=== PATIENT | male | born 1970 | race Caucasian/White ===

== ENCOUNTER → 2020-07-09 14:05 | Outpatient (CLI) | payer OTHER, SELFPAY ==
[2020-07-09 16:08] LABS: COVID19 -Nasal RAPID Negative (Negative)
== END ==
PROVIDERS: Visit Provider Physician Assistant
DX: Z03.818 Encounter for observation for suspected exposure to other biological agents ruled out (principal)
CPT/HCPCS: 87635

== ENCOUNTER 2021-09-19 12:10 | Emergency (ER) | payer OTHER, SELFPAY ==
[2021-09-19] VITALS (50 sets, daily range): BP systolic 119–171; BP diastolic 74–117; PULSE 61–83; RESP 6–27; TEMP 36.6; O2SAT 94–99; BMI 31.9
--- NOTE | 2021-09-19 12:16 | DI.RAD.S_ITS ---
PROCEDURE: XR CHEST 1V INDICATIONS: chest pain TECHNIQUE: One view of the chest was acquired. COMPARISON: [facility], , CHEST 1VW (PORTABLE), 02/11/2011, 9:12. FINDINGS: Surgical changes and devices: None. Lungs and pleura: Presumed atelectasis can be seen at the left lung base. No focal infiltrates are seen. No pleural effusions or pneumothorax. Mediastinum: Mediastinal contours appear normal. Heart size is normal. Bones and chest wall: No suspicious bony lesions. Age-appropriate bony degenerative changes are seen. Overlying soft tissues appear unremarkable. IMPRESSION: Unremarkable portable chest for age. Dictated by: Niall Cee M.D. on 09/19/2021 at 11:52 Approved by: Niall Cee M.D. on 09/19/2021 at 11:53
--- NOTE | 2021-09-19 12:35 | ED.CHESTPAIN ---
HPI - Chest Pain General Chief Complaint: Chest Pain Stated Complaint: Chest Pain Time Seen by Provider: 09/19/21 12:34 Source: patient Mode of arrival: Ambulatory Limitations: no limitations History of Present Illness HPI narrative: Patient is a 51-year-old male who is here for evaluation of chest pressure. He states that for weeks ago he was on vacation. He was running while he was on vacation and started having left-sided chest pain. It did radiate to his left arm. It went away shortly after he stopped running. He started dog again in the symptoms came back. He once again stopped in the symptoms improved. This happened again the next day. He decided to no longer exercise while he was on vacation. When he returned home he contacted his primary provider. There is referral for him to see Cardiology but this is scheduled for next Tuesday. He has not had any risk stratification up to this point. Over the past couple days while at work he states he was not exerting himself and started to have chest discomfort as well. He became diaphoretic at this time. Did go away on its own and then last evening again had the chest discomfort again while he was sitting on the couch. He currently has a slight pressure that he states feels similar to the prior discomfort but not as intense. Was started on lisinopril by his primary doctor after the phone call last week. Related Data Allergies Allergy/AdvReac Type Severity Reaction Status Date / Time No Known Drug Allergies Allergy Verified 09/19/21 12:23 Review of Systems Constitutional Constitutional: Reports system reviewed and no additional complaints, except as documented Cardiovascular Cardiovascular: Reports as per HPI and Reports system reviewed and no additional complaints, except as documented Respiratory Respiratory: Reports as per HPI and Reports system reviewed and no additional complaints, except as documented Gastrointestinal Gastrointestinal: Reports system reviewed and no additional complaints, except as documented Musculoskeletal Musculoskeletal: Reports system reviewed and no additional complaints, except as documented and Reports as per HPI Hematologic/Lymphatic On Anticoagulants: No Patient History Medical History Hydronephrosis, left Nephrolithiasis Ureterolithiasis Social History Smoking Status: Unknown if ever smoked Smoking Status: Unknown if ever smoked alcohol intake frequency: holidays/special occasions only Substance Use Type: does not use Exam Initial Vital Signs Initial Vital Signs: Vital Signs Temperature 97.8 F 09/19/21 12:17 Pulse Rate 76 09/19/21 12:17 Respiratory Rate 15 09/19/21 12:17 Blood Pressure 144/90 H 09/19/21 12:17 Pulse Oximetry 99 09/19/21 12:17 HENDC Head: normal to inspection and normocephalic Resp Effort & Inspection: normal respiratory effort Auscultation: clear to auscultation bilaterally Cardio Rate: regular rate Rhythm: regular rhythm GI Inspection: normal to inspection Skin General: no rashes or lesions noted Neuro General: patient alert, patient awake and moves all extremities Extrem General: normal to inspection and no pedal edema Psych Appearance: grossly normal and well kempt Scores GCS [place] coma scale eye opening: Spontaneous [place] coma scale verbal response: Orientated Janet coma scale motor response: Obey commands Janet coma scale total score: 15 Course Orders Ordered: ED Orders 09/19/21 12:16 XR chest 1V Stat EKG-12 Lead Stat 09/19/21 12:37 Complete Blood Count AUTO DIFF Stat Comprehensive Metabolic Panel Stat Lipase Stat Magnesium Stat Troponin & CK Cardiac Panel Stat 09/19/21 15:00 Troponin I Stat 09/19/21 15:46 COVID19 -Nasal swab/Pre-Proc Stat Nitroglycerin (Nitroglycerin 0.4 Mg Sl Tab) 0.4 mg SL [id number] PRN PRN Reason: Chest Pain Last Admin: 09/19/21 12:47 Dose: 0.4 mg Documented by: Admin: 09/19/21 12:40 Dose: 0.4 mg Documented by: SHELLEY Discontinued Medications Aspirin (Aspirin 81 Mg Chew Tab) 324 mg PO NOW ONE Stop: 09/19/21 12:37 Last Admin: 09/19/21 12:40 Dose: 324 mg Documented by: SHELLEY Vital Signs Vital signs: Vital Signs - 8 hr 09/19/21 12:17 09/19/21 12:21 09/19/21 12:22 Temperature 97.8 F Pulse Rate 76 80 78 Respiratory Rate 15 Blood Pressure 144/90 H 144/90 H Pulse Oximetry 99 99 98 09/19/21 12:30 09/19/21 12:35 09/19/21 12:40 Temperature Pulse Rate 83 73 75 Respiratory Rate 20 13 15 Blood Pressure 171/117 H 171/117 H Pulse Oximetry 99 99 98 09/19/21 12:45 09/19/21 12:47 09/19/21 12:50 Temperature Pulse Rate 78 79 79 Respiratory Rate 24 Blood Pressure 133/83 133/83 132/81 Pulse Oximetry 96 96 09/19/21 12:55 09/19/21 13:00 09/19/21 13:05 Temperature Pulse Rate 78 73 71 Respiratory Rate 21 11 L 10 L Blood Pressure 122/74 119/77 122/82 Pulse Oximetry 95 96 95 09/19/21 13:10 09/19/21 13:15 09/19/21 13:20 Temperature Pulse Rate 71 71 68 Respiratory Rate 14 23 16 Blood Pressure 122/82 123/84 Pulse Oximetry 96 94 96 09/19/21 13:25 09/19/21 13:30 09/19/21 13:35 Temperature Pulse Rate 72 69 72 Respiratory Rate 19 20 17 Blood Pressure 119/84 Pulse Oximetry 96 95 95 09/19/21 13:40 09/19/21 13:45 09/19/21 13:50 Temperature Pulse Rate 68 67 70 Respiratory Rate 21 18 18 Blood Pressure Pulse Oximetry 96 96 95 09/19/21 13:55 09/19/21 14:00 09/19/21 14:05 Temperature Pulse Rate 72 69 71 Respiratory Rate 13 16 18 Blood Pressure 127/86 Pulse Oximetry 97 98 96 09/19/21 14:10 09/19/21 14:15 09/19/21 14:20 Temperature Pulse Rate 71 70 70 Respiratory Rate 19 17 27 H Blood Pressure Pulse Oximetry 94 97 97 09/19/21 14:25 09/19/21 14:30 09/19/21 14:35 Temperature Pulse Rate 71 66 65 Respiratory Rate 16 20 15 Blood Pressure 128/91 H Pulse Oximetry 96 97 97 09/19/21 14:40 09/19/21 14:45 09/19/21 14:50 Temperature Pulse Rate 74 71 69 Respiratory Rate 20 20 20 Blood Pressure Pulse Oximetry 98 97 97 09/19/21 14:55 09/19/21 15:00 09/19/21 15:05 Temperature Pulse Rate 66 68 68 Respiratory Rate 16 18 19 Blood Pressure 127/84 Pulse Oximetry 97 97 98 09/19/21 15:10 09/19/21 15:15 09/19/21 15:20 Temperature Pulse Rate 64 61 68 Respiratory Rate 12 10 L 21 Blood Pressure Pulse Oximetry 97 98 96 09/19/21 15:25 09/19/21 15:30 09/19/21 15:35 Temperature Pulse Rate 64 67 65 Respiratory Rate 6 L 16 15 Blood Pressure 134/88 Pulse Oximetry 97 98 99 09/19/21 15:40 09/19/21 15:45 09/19/21 15:50 Temperature Pulse Rate 70 70 72 Respiratory Rate 21 18 18 Blood Pressure Pulse Oximetry 98 98 98 09/19/21 15:55 09/19/21 16:00 09/19/21 16:05 Temperature Pulse Rate 71 69 69 Respiratory Rate 23 15 17 Blood Pressure 153/97 H Pulse Oximetry 98 97 99 09/19/21 16:10 09/19/21 16:15 Temperature Pulse Rate 72 70 Respiratory Rate 17 15 Blood Pressure Pulse Oximetry 98 98 MDM - Chest Pain Lab Data Attestation: I reviewed the patient's lab results. Result diagrams: 09/19/21 12:37 09/19/21 12:37 Labs: Lab Results 09/19/21 09/19/21 09/19/21 Range/Units 12:37 12:37 15:00 WBC 8.8 (4.5-11.0) X10^3/uL RBC 5.22 (4.5-5.9) X10^6/uL Hgb 17.1 (13.5-17.5) g/dL Hct 48.6 (41-53) % MCV 93.1 (80-100) fL MCH 32.7 (26-34) PG MCHC 35.1 (30-36) % RDW 13.4 (11.6-14.8) % Plt Count 168 (150-400) X10^3/uL Neut % (Auto) 63.8 (50-75) % Lymph % (Auto) 23.8 L (25-40) % Evangeline % (Auto) 8.6 (3-14) % Eos % (Auto) 3.1 (2-4) % Baso % (Auto) 0.7 (0-2) % Neut # (Auto) 5600 (7435-4965) /uL Lymph # (Auto) 2100 (0956-4220) /uL Evangeline # (Auto) 800 (0-900) /uL Eos # (Auto) 300 (0-450) /uL Baso # (Auto) 100 (0-100) /uL Sodium 140 (137-145) mmol/L Potassium 4.3 (3.4-5.1) mmol/L Chloride 105 (98-107) mmol/L Carbon Dioxide 28 (22-32) mmol/L BUN 22 H (9-20) mg/dL Creatinine 1.11 (0.66-1.25) mg/dL Estimated GFR > 60.0 (>60) mL/min BUN/Creatinine Ratio 19.8 (6-22) Glucose 105 H (70-100) mg/dL Calcium 9.1 (8.4-10.2) mg/dL Magnesium 2.2 (1.6-2.3) mg/dL Total Bilirubin 1.0 (0.2-1.3) mg/dL AST 23 (17-59) IU/L ALT 16 (<50) IU/L Alkaline Phosphatase 48 (38-126) U/L Total Creatine Kinase 43 L (55-170) U/L CK-MB (CK-2) TNP CK-MB (CK-2) Rel Index TNP Troponin I < 0.012 < 0.012 (0.01-0.034) ng/mL Total Protein 7.7 (6.3-8.2) g/dL Albumin 4.5 (3.5-5.0) g/dL Globulin 3.2 (1.7-4.1) g/dL Albumin/Globulin Ratio 1.4 (1.0-2.8) Lipase 104 (23-300) U/L SARS-CoV-2 (PCR) (Negative) 09/19/21 Range/Units 15:50 WBC (4.5-11.0) X10^3/uL RBC (4.5-5.9) X10^6/uL Hgb (13.5-17.5) g/dL Hct (41-53) % MCV (80-100) fL MCH (26-34) PG MCHC (30-36) % RDW (11.6-14.8) % Plt Count (150-400) X10^3/uL Neut % (Auto) (50-75) % Lymph % (Auto) (25-40) % Evangeline % (Auto) (3-14) % Eos % (Auto) (2-4) % Baso % (Auto) (0-2) % Neut # (Auto) (6303-0999) /uL Lymph # (Auto) (7430-3390) /uL Evangeline # (Auto) (0-900) /uL Eos # (Auto) (0-450) /uL Baso # (Auto) (0-100) /uL Sodium (137-145) mmol/L Potassium (3.4-5.1) mmol/L Chloride (98-107) mmol/L Carbon Dioxide (22-32) mmol/L BUN (9-20) mg/dL Creatinine (0.66-1.25) mg/dL Estimated GFR (>60) mL/min BUN/Creatinine Ratio (6-22) Glucose (70-100) mg/dL Calcium (8.4-10.2) mg/dL Magnesium (1.6-2.3) mg/dL Total Bilirubin (0.2-1.3) mg/dL AST (17-59) IU/L ALT (<50) IU/L Alkaline Phosphatase (38-126) U/L Total Creatine Kinase (55-170) U/L CK-MB (CK-2) CK-MB (CK-2) Rel Index Troponin I (0.01-0.034) ng/mL Total Protein (6.3-8.2) g/dL Albumin (3.5-5.0) g/dL Globulin (1.7-4.1) g/dL Albumin/Globulin Ratio (1.0-2.8) Lipase (23-300) U/L SARS-CoV-2 (PCR) Negative (Negative) Imaging Data Chest x-ray: Radiologist's Impression: [address] [id number] XRay Report Signed Patient: Carlos A Benz MR#: [id number] : 1970 Acct:[id number] Age/Sex: 51 / M Date of Service: 09/19/21 Loc: ED Accession Number: [id number] ?? Procedure: XR chest 1V Ordering Provider: Foster Golden D.O. PROCEDURE:? XR CHEST 1V ? INDICATIONS:? chest pain ? TECHNIQUE:? One view of the chest was acquired.? ? COMPARISON:? [facility], CR, CHEST 1VW (PORTABLE), 02/11/2011, 9:12. ? FINDINGS:? ? Surgical changes and devices:? None.? ? Lungs and pleura:? Presumed atelectasis can be seen at the left lung base.? No focal infiltrates are seen. ? No pleural effusions or pneumothorax.? ? Mediastinum:? Mediastinal contours appear normal.? Heart size is normal.? ? Bones and chest wall:? No suspicious bony lesions.? Age-appropriate bony degenerative changes are seen.? Overlying soft tissues appear unremarkable.? ? ? IMPRESSION:? Unremarkable portable chest for age. ? ? Dictated by: Niall Cee M.D. on 09/19/2021 at 11:52 ? ? Approved by: Niall Cee M.D. on 09/19/2021 at 11:53?? ECG Data Attestation: I personally reviewed and interpreted this ECG as follows: Prior ECG tracings: available for review Interpretation: Sinus rhythm Ventricular rate 85 Left axis deviation Normal QRS Nonspecific ST T wave changes MDM Narrative Medical decision making narrative: Patient has had was initially external chest discomfort that resolves with resting for the past several days. Last evening he started to have chest discomfort without any exertion. Has chest pain upon arrival but he states that is not as intense as what it has been. Patient was chest pain-free after 2 nitroglycerin. Has remained chest pain-free since then. Blood pressure also improved as well. Nonspecific changes on his EKG. Troponins negative x2. Chest x-ray is unremarkable. He was also given an aspirin. He does have a very concerning story for unstable angina of. Discussed the case with Dr. Shearer and Cardiology at [facility] when telling him. They Accept the patient in transfer. Patient does require risk stratification testing. We are unable to provide that at this facility over the weekend. We are unable to provide catheterization services if needed. Patient expressed understanding and agreement with transfer. Patient stable for transfer. Discharge Plan Departure Patient Disposition: [facility] Clinical Impression: Unstable angina Referrals: Miscellaneous,[facility] [Primary Care Provider] -
[2021-09-19] MEDS: NITROGLYCERIN 0.4 MG SL TAB SL ×2 (12:40→12:47)
[2021-09-19] MEDS: ASPIRIN 81 MG CHEW TAB 324 MG PO (12:40)
--- NOTE | 2021-09-19 12:42 | PC.NURSE ---
Pt began having pain approx 2 weeks ago,worse with exertion. Approx 1 week ago he began having pain at rest.
[2021-09-19 12:47] LABS: Add Manual Diff / Slide Review NO; Basophils Absolute Auto 100 /uL (0-100); Basophils Percent Auto 0.7 % (0-2); Eosinophils Absolute Auto 300 /uL (0-450); Eosinophils Percent Auto 3.1 % (2-4); Hematocrit 48.6 % (41-53); Hemoglobin 17.1 g/dL (13.5-17.5); Lymphocytes Absolute Auto 2100 /uL (1100-4500); Lymphocytes Percent Auto 23.8 % (25-40); Mean Corpuscular HGB Conc 35.1 % (30-36); Mean Corpuscular Hemoglobin 32.7 PG (26-34); Mean Corpuscular Volume 93.1 fL (80-100); Monocytes Absolute Auto 800 /uL (0-900); Monocytes Percent Auto 8.6 % (3-14); Neutrophils Absolute Auto 5600 /uL (1500-7000); Neutrophils Percent Auto 63.8 % (50-75); Platelet Count 168 X10^3/uL (150-400); Red Blood Cell Count 5.22 X10^6/uL (4.5-5.9); Red Cell Distribution Width 13.4 % (11.6-14.8); White Blood Cell Count 8.8 X10^3/uL (4.5-11.0)
[2021-09-19 13:07] LABS: Alanine Aminotransferase 16 IU/L (<50); Albumin 4.5 g/dL (3.5-5.0); Albumin Globulin Ratio 1.4 (1.0-2.8); Alkaline Phosphatase 48 U/L (38-126); Aspartate Aminotransferase 23 IU/L (17-59); BUN Creatinine Ratio 19.8 (6-22); Blood Urea Nitrogen 22 mg/dL (9-20); Calcium 9.1 mg/dL (8.4-10.2); Carbon Dioxide 28 mmol/L (22-32); Chloride 105 mmol/L (98-107); Creatine Kinase 43 U/L (55-170); Estimated Glomerular Filt Rate > 60.0 mL/min (>60); Globulin 3.2 g/dL (1.7-4.1); Glucose 105 mg/dL (70-100); HEMOLYSIS < 15 (0-50); Lipase 104 U/L (23-300); Magnesium 2.2 mg/dL (1.6-2.3); Potassium 4.3 mmol/L (3.4-5.1); Sodium 140 mmol/L (137-145); Total Protein 7.7 g/dL (6.3-8.2)
[2021-09-19 13:19] LABS: Troponin I < 0.012 ng/mL (0.01-0.034)
[2021-09-19 15:31] LABS: Troponin I < 0.012 ng/mL (0.01-0.034)
--- NOTE | 2021-09-19 15:42 | PC.NURSE ---
[facility] [phone]
--- NOTE | 2021-09-19 15:57 | PC.NURSE ---
report called to GUCCI Perez
[2021-09-19 16:10] LABS: COVID19 -Nasal RAPID Negative (Negative)
== END 2021-09-19 16:35 | disposition short-term general hospital (02) ==
PROVIDERS: Emergency Provider Emergency Medicine
DX: I20.0 Unstable angina (principal); Z20.822 Contact with and (suspected) exposure to COVID-19
CPT/HCPCS: 36415; 71045; 80053; 82550; 83690; 83735; 84484; 85025; 87635; 93005; 93010; 99284; 99285; C9803

== ENCOUNTER 2022-05-05 08:30 | Outpatient (RCR) | payer OTHER, SELFPAY | END 2022-05-05 10:30 | LOC: CAR 08:30 | PROVIDERS: Referring Provider Thoracic Surgery (Cardiothoracic Vascular Surgery); Visit Provider Thoracic Surgery (Cardiothoracic Vascular Surgery) | DX: Z95.1 Presence of aortocoronary bypass graft (principal) | CPT/HCPCS: 93798 ==

== ENCOUNTER → 2022-12-21 13:23 | Outpatient (CLI) | payer OTHER, SELFPAY ==
[2022-12-23 09:48] LABS: PSA Free % 13.9 % (.); PSA, Total 3.3 ng/mL (0.0-4.0)
== END ==
PROVIDERS: Referring Provider Specialist; Visit Provider Specialist
DX: Z80.42 Family history of malignant neoplasm of prostate (principal)
CPT/HCPCS: 36415; 84153; 84154

== ENCOUNTER 2023-07-17 23:18 | Inpatient (IN) | payer OTHER, SELFPAY ==
[2023-07-17 23:42] VITALS: BP 150/94; PULSE 133; RESP 20; TEMP 37.2; O2SAT 96; BMI 32.5
[2023-07-18] VITALS (16 sets, daily range): BP systolic 112–131; BP diastolic 74–88; PULSE 80–128; RESP 18–28; TEMP 35.9–38.5; O2SAT 93–99; BMI 32.5
--- NOTE | 2023-07-18 | DI.RAD.S_ITS ---
PROCEDURE: XR GASTROGRAFIN CHALLENGE COMPARISON: None. INDICATIONS: SBO FINDINGS: Oral contrast is seen within the stomach, dilated small bowel. Gas within the large bowel. The ascending colon is obscured by overlying small bowel. IMPRESSION: Oral contrast within the stomach and dilated small bowel. No definite oral contrast within large bowel. Dictated by: Damion Strauss M.D. on 07/18/2023 at 13:30 Approved by: Damion Strauss M.D. on 07/18/2023 at 13:33
[2023-07-18 00:06] LABS: Add Manual Diff / Slide Review NO; Basophils Absolute Auto 0 /uL (0-100); Basophils Percent Auto 0.4 % (0-2); Eosinophils Absolute Auto 100 /uL (0-450); Eosinophils Percent Auto 1.9 % (2-4); Hematocrit 47.4 % (41-53); Hemoglobin 16.5 g/dL (13.5-17.5); Lymphocytes Absolute Auto 600 /uL (1100-4500); Lymphocytes Percent Auto 15.9 % (25-40); Mean Corpuscular HGB Conc 34.8 % (30-36); Mean Corpuscular Hemoglobin 33.1 PG (26-34); Mean Corpuscular Volume 95.1 fL (80-100); Monocytes Absolute Auto 400 /uL (0-900); Monocytes Percent Auto 11.8 % (3-14); Neutrophils Absolute Auto 2600 /uL (1500-7000); Platelet Count 111 X10^3/uL (150-400); Red Blood Cell Count 4.99 X10^6/uL (4.5-5.9); Red Cell Distribution Width 13.5 % (11.6-14.8); White Blood Cell Count 3.7 X10^3/uL (4.5-11.0)
[2023-07-18 00:18] LABS: Alanine Aminotransferase 37 IU/L (<50); Albumin 4.2 g/dL (3.5-5.0); Albumin Globulin Ratio 1.2 (1.0-2.8); Alkaline Phosphatase 65 U/L (38-126); Aspartate Aminotransferase 41 IU/L (17-59); BUN Creatinine Ratio 24.7 (6-22); Blood Urea Nitrogen 21 mg/dL (9-20); Calcium 9.3 mg/dL (8.4-10.2); Carbon Dioxide 22 mmol/L (22-32); Chloride 102 mmol/L (98-107); Estimated Glomerular Filt Rate > 60 mL/min (>60); Globulin 3.5 g/dL (1.7-4.1); Glucose 123 mg/dL (70-100); HEMOLYSIS < 15 (0-50); Lipase 97 U/L (23-300); Potassium 3.4 mmol/L (3.4-5.1); Sodium 136 mmol/L (137-145); Total Protein 7.7 g/dL (6.3-8.2)
--- NOTE | 2023-07-18 00:22 | DI.CT.S_ITS ---
PROCEDURE: CT ABDOMEN PELVIS W CON INDICATIONS: abdominal pain TECHNIQUE: After the administration of IV contrast, axial sections were acquired from the lung bases to the pubic symphysis. Coronal and sagittal reformats were performed. For radiation dose reduction, the following was used: automated exposure control, adjustment of mA and/or kV according to patient size. COMPARISON: [facility], CT, KIDNEY/ URETER/BLADDER, 10/08/2015, 2:54. FINDINGS: Image quality: Excellent. Lung bases: Unremarkable. Heart: No significant findings. ABDOMEN: Liver: Steatosis. Gallbladder: No radiopaque gallstones or wall thickening. Biliary ducts: No biliary dilation. Pancreas: No ductal dilation. Spleen: Size is within normal limits. Adrenal Glands: No adrenal nodules. Kidneys and Ureters: Linear 4 mm nonobstructing calcification is present within the right kidney. 5 calcifications, nonobstructing are present in the left kidney the largest measuring 6 mm in the inferior pole, Hounsfield units 1140. Stomach and Bowel: Mildly dilated fluid-filled loops of small bowel with AP dimension measuring 3.5 cm. Transition point is not clearly identified. Peritoneum: No abnormal intraperitoneal fluid. No free air. Ventral Wall: No hernia. Abdominal Nodes: No retroperitoneal or mesenteric adenopathy by size criteria. Vessels: Aorta and inferior vena cava are normal in size. PELVIS: Pelvic Organs: Unremarkable. Bladder: Unremarkable. Pelvic Nodes: No enlarged lymph nodes. Miscellaneous: No inguinal hernias are seen. Bones: Unremarkable. IMPRESSION: Mild dilation of small bowel fluid-filled loops most consistent with partial small bowel obstruction. No definitive transition point is identified. Nonobstructing bilateral renal calculi. Dictated by: Rufina Chakraborty M.D. on 07/18/2023 at 1:28 Approved by: Rufina Chakraborty M.D. on 07/18/2023 at 1:32
--- NOTE | 2023-07-18 00:34 | ED_ITS ---
HPI - General Adult General Chief complaint: Abdominal Pain Stated complaint: abd pain Time Seen by Provider: 07/18/23 00:22 Source: patient Mode of arrival: Ambulatory History of Present Illness HPI narrative: 53-year-old gentleman with a history of diabetes, coronary artery disease post CABG, hypertension hyperlipidemia recently returned from [facility] and had an episode of body aches flu-like feeling fit diaphoretic low-grade temperatures some diarrhea upon return. He was nauseated but no actual vomiting. This evening he began having increasing abdominal bloating, abdominal pain and decreased overall stool and flatus output. He comes in for further evaluation. He does not note any chest pain or dyspnea. He does note that he is tachycardic but it is not painful. Related Data Home Medications Medication Instructions Recorded Confirmed aspirin 81 mg tablet,delayed 81 mg PO DAILY 11/17/22 12/29/22 release (Adult Aspirin Regimen) metoprolol succinate 50 mg 50 mg PO DAILY 11/17/22 12/29/22 tablet,extended release 24 hr rosuvastatin 40 mg tablet 40 mg PO DAILY 11/17/22 12/29/22 empagliflozin 10 mg tablet 10 mg PO DAILY 12/29/22 12/29/22 Allergies Allergy/AdvReac Type Severity Reaction Status Date / Time No Known Drug Allergies Allergy Verified 12/29/22 07:52 Review of Systems Review of Systems Narrative: Pertinent positive and negative findings as per HPI Patient History Medical History (Updated 07/18/23 @ 05:21 by Keisha Urbina MD) BPH NOS w/o ur obs/LUTS Sterilization consult Family history of prostate cancer in father Male circumcision High blood pressure History of heart disease Hydronephrosis, left Nephrolithiasis Ureterolithiasis Surgical History Hx of CABG Family History Father Cancer CAD in [place] artery Social History marital status: number of children: 2 Smoking Status: Never smoker Type(s) of exercise: other frequency: 3-4 times per week Smoking Status: Never smoker alcohol intake frequency: holidays/special occasions only Substance Use Type: does not use Exam Initial Vital Signs Initial Vital Signs: Vital Signs Temperature 99 F 11/19/23 23:42 Pulse Rate 133 H 07/17/23 23:42 Respiratory Rate 20 07/17/23 23:42 Blood Pressure 150/94 H 07/17/23 23:42 Pulse Oximetry 96 07/17/23 23:42 Oxygen Delivery Method Room Air 07/17/23 23:42 General: Healthy appearing, in mild pain but Able to give a complete and coherent history. Well-nourished well-developed HEENT: Moist mucous membranes, normal sclera with reactive pupils, Respiratory: Lungs are clear to auscultation, no wheezing no rales no rhonchi. Full and symmetrical air movement Cardiac: Tachycardic but otherwise Regular rate and rhythm no murmurs no bruits Abdomen: Distended, lower abdominal tenderness bilaterally without rebound or guarding, no flank pain Skin: Warm and dry, no rashes Neurologic: Grossly neurologically intact with no obvious asymmetries or abnormalities Extremities: No trauma, well perfused Psych: Cooperative, appropriate insight and affect Course Orders Ordered: ED Orders 07/17/23 23:50 EKG-12 Lead Stat 07/17/23 23:53 Complete Blood Count AUTO DIFF Stat Comprehensive Metabolic Panel Stat Lipase Stat 07/18/23 00:22 CT abdomen pelvis w con Stat D Dimer Stat NT-proBNP (BNP-Adult 18+) Stat Trop I [Troponin I] Stat 07/18/23 02:45 CT angio chest PE protocol Stat 07/18/23 02:55 Urine Microscopic Stat 07/18/23 03:47 Respiratory Panel (Film Array) Stat Hydromorphone HCl (Hydromorphone 0.5 Mg Inj) 0.5 mg IV Q15MIN PRN PRN Reason: Pain, Last Admin: 07/18/23 00:59 Dose: 0.5 mg Documented By: AM Sodium Chloride (Normal Saline 0.9%) 1,000 mls @ 150 mls/hr IV CONT AMIRAH Last Admin: 07/18/23 03:00 Dose: 150 mls/hr Documented By: SB Ondansetron HCl (Ondansetron 4 Mg Odt) 4 mg PO NOW PRN PRN Reason: Nausea And Vomiting Ondansetron HCl (Ondansetron 4 Mg/2 Ml Inj) 4 mg IV NOW PRN PRN Reason: Nausea And Vomiting Last Admin: 07/18/23 00:59 Dose: 4 mg Documented By: AM Discontinued Medications Acetaminophen (Acetaminophen 325 Mg Tablet) 975 mg PO NOW ONE Stop: 07/18/23 03:28 Last Admin: 07/18/23 03:33 Dose: 975 mg Documented By: VLAD Sodium Chloride (Normal Saline 0.9%) 1,000 mls @ 1,000 mls/hr IV BOLUS ONE Stop: 07/18/23 01:37 Last Infusion: 07/18/23 02:01 Dose: Infused Documented By: Admin: 07/18/23 00:59 Dose: 1,000 mls/hr Documented By: AM Vital Signs Vital signs: Vital Signs - 8 hr 07/17/23 23:42 07/18/23 00:59 07/18/23 01:00 Temperature 99 F Pulse Rate 133 H 109 H 109 H Respiratory Rate 20 20 20 Blood Pressure 150/94 H Pulse Oximetry 96 99 99 Oxygen Delivery Method Room Air Room Air 07/18/23 01:30 07/18/23 02:00 07/18/23 02:00 Temperature Pulse Rate 103 H 112 H Respiratory Rate 21 18 Blood Pressure 131/85 Pulse Oximetry 97 97 Oxygen Delivery Method Room Air 07/18/23 02:30 07/18/23 02:30 07/18/23 03:00 Temperature Pulse Rate 111 H 115 H Respiratory Rate 25 H 24 Blood Pressure 125/82 Pulse Oximetry 94 97 Oxygen Delivery Method 07/18/23 03:00 07/18/23 03:24 07/18/23 03:24 Temperature 101.3 F H Pulse Rate 112 H Respiratory Rate 24 Blood Pressure 118/87 126/83 Pulse Oximetry 98 Oxygen Delivery Method Room Air Medical Decision Making Lab Data 07/17/23 23:53 07/17/23 23:53 Labs: Lab Results 07/17/23 07/17/23 07/18/23 Range/Units 23:53 23:55 02:55 WBC 3.7 L (4.5-11.0) X10^3/uL RBC 4.99 (4.5-5.9) X10^6/uL Hgb 16.5 (13.5-17.5) g/dL Hct 47.4 (41-53) % MCV 95.1 (80-100) fL MCH 33.1 (26-34) PG MCHC 34.8 (30-36) % RDW 13.5 (11.6-14.8) % Plt Count 111 L (150-400) X10^3/uL Neut % (Auto) 70.0 (50-75) % Lymph % (Auto) 15.9 L (25-40) % [place] % (Auto) 11.8 (3-14) % Eos % (Auto) 1.9 L (2-4) % Baso % (Auto) 0.4 (0-2) % Neut # (Auto) 2600 (7884-7863) /uL Lymph # (Auto) 600 L (1786-1619) /uL [place] # (Auto) 400 (0-900) /uL Eos # (Auto) 100 (0-450) /uL Baso # (Auto) 0 (0-100) /uL D-Dimer 1875 H (<500) ng/ml Sodium 136 L (137-145) mmol/L Potassium 3.4 (3.4-5.1) mmol/L Chloride 102 (98-107) mmol/L Carbon Dioxide 22 (22-32) mmol/L BUN 21 H (9-20) mg/dL Creatinine 0.85 (0.66-1.25) mg/dL Estimated GFR > 60 (>60) mL/min BUN/Creatinine Ratio 24.7 H (6-22) Glucose 123 H (70-100) mg/dL Calcium 9.3 (8.4-10.2) mg/dL Total Bilirubin 1.0 (0.2-1.3) mg/dL AST 41 (17-59) IU/L ALT 37 (<50) IU/L Alkaline Phosphatase 65 (38-126) U/L Troponin I < 0.012 (0.01-0.034) ng/mL NT-Pro-B Natriuret Pep 210 H (<125) pg/mL Total Protein 7.7 (6.3-8.2) g/dL Albumin 4.2 (3.5-5.0) g/dL Globulin 3.5 (1.7-4.1) g/dL Albumin/Globulin Ratio 1.2 (1.0-2.8) Lipase 97 (23-300) U/L Urine RBC 0-1/hpf (0-5/HPF) Urine WBC None seen (0-5/HPF) Ur Squamous Epith Cells None seen (0-5/HPF) Urine Bacteria None seen (None) Ur Culture Indicated? Cult not indicated Urine Dip Bedside Urine Glucose 1000 mg/dl Bedside Urine Bilirubin - Negative Bedside Urine Ketone ++ 40 Urine Specific [place] 1.010 Bedside Urine Occult Blood + Bedside Urine pH 5.5 Bedside Urine Protein - Negative Bedside Urine Urobilinogen - Negative Bedside Urine Nitrite - Negative Bedside Urine Leukocytes - Negative Esterase Point of care testing: Urine Dip Bedside Urine Glucose 1000 mg/dl Bedside Urine Bilirubin - Negative Bedside Urine Ketone ++ 40 Urine Specific [place] 1.010 Bedside Urine Occult Blood + Bedside Urine pH 5.5 Bedside Urine Protein - Negative Bedside Urine Urobilinogen - Negative Bedside Urine Nitrite - Negative Bedside Urine Leukocytes - Negative Esterase MDM Narrative Medical decision making narrative: CC: Abdominal pain Complicating co-morbidities: Hypertension, hyperlipidemia, Data collected from: patient, Differential considered: Viral syndrome, bowel obstruction, appendicitis, diverticulitis Exam documented above, pertinent findings include: Otherwise healthy-appearing 53-year-old gentleman in moderate distress with distended abdomen, not surgical at this time but certainly looks uncomfortable no flank pain. Lab Test results independently reviewed as above. Pertinent findings: CBC shows a white count slightly low at 3.7, H&H is appropriate platelets are slightly low at 111 Chemistries show normal renal function potassium 3.4 liver studies are unremarkable. Respiratory panel is all within normal limits Independently reviewed EKG sinus tachycardia at a rate of 129. Nonspecific STT wave abnormalities. Incomplete right bundle branch block. No priors available for comparison Imaging studies independently reviewed: Chest x-ray shows no acute cardiopulmonary abnormalities CT angiogram of the chest shows no central pulmonary embolism aortic dissection or aneurysm. Consultations: Reviewed with DR Kumari, will admit Treatments: Fluids, Zofran, Dilaudid, Tylenol Re-evaluations: Patient is updated regarding the results of CT scan suggesting a partial bowel obstruction. Understands the recommendation for admission for pain control and to make sure that this resolves. Explain concern for PE given the police plane trip, persistent tachycardia and elevated D-dimer. Understands the need for a CT angiogram of the chest. 330am increasing fevers, myalgias, and abdominal pain. We will give him 975 mg of Tylenol 0415 updated patient and on CT results Discussion: 53-year-old gentleman recently returned from [facility] with viral type symptoms, increasing abdominal pain in the afternoon noticed significantly increased bloating inability to pass gas and comes in for further evaluation. CT scan of the abdomen suggests small bowel obstruction. No evidence of significant bacterial infection, diverticulitis, abscess or other surgical complication at this point. He has not had abdominal surgeries to explain the bowel obstruction noted. As he is not having severe emesis will hold on an NG tube at this time Because of his recent longer plane flight from [place], tachycardia persistent after fluid resuscitation and elevated D-dimer a CT scan of the chest is done to rule out pulmonary embolism. Patient will be admitted, observation status. Discharge Plan Departure Patient Disposition: Admitted as Observation Clinical Impression: SBO (small bowel obstruction), Tachycardia Fever Qualifiers: Fever type: unspecified Qualified Code(s): R50.9 - Fever, unspecified Prescriptions: No Action metoprolol succinate 50 mg tablet extended release 24 hr 50 mg PO DAILY rosuvastatin 40 mg tablet 40 mg PO DAILY aspirin [Adult Aspirin Regimen] 81 mg tablet,delayed release (DR/EC) 81 mg PO DAILY empagliflozin 10 mg tablet 10 mg PO DAILY Referrals: Osmany Dewey PA-C [Primary Care Provider] -
[2023-07-18 00:51] LABS: D Dimer 1875 ng/ml (<500)
[2023-07-18] MEDS: HYDROMORPHONE 0.5 MG INJ IV ×3 (00:59→19:12)
[2023-07-18] MEDS: SODIUM CHLORIDE 0.9% 1,000 ML 1000 ML IV (00:59)
[2023-07-18] MEDS: ONDANSETRON 4 MG/2 ML INJ IV (00:59)
[2023-07-18 01:07] LABS: NT-proBNP (BNP-Adult 18+) 210 pg/mL (<125); Troponin I < 0.012 ng/mL (0.01-0.034)
--- NOTE | 2023-07-18 02:45 | DI.CT.S_ITS ---
PROCEDURE: CT ANGIO CHEST PE PROTOCOL INDICATIONS: Tachycardia, elevated D-dimer TECHNIQUE: After the administration of intravenous contrast, 2 mm thick sections acquired from the pulmonary apices to the posterior costophrenic angles. 3-dimensional maximum intensity projection (MIP) coronal and sagittal reformats were then acquired through the thorax. For radiation dose reduction, the following was used: automated exposure control, adjustment of mA and/or kV according to patient size. COMPARISON: [facility], CT, CT ABDOMEN PELVIS W CON, 07/18/2023, 0:44. FINDINGS: Image quality: Diagnostic. Opacification is somewhat delayed. Pulmonary arteries: Pulmonary arteries are normal in size, and demonstrate no intraluminal filling defects to suggest central pulmonary embolism. Lungs and pleura: No convincing infiltrate. Dependent atelectasis. No mass or significant pulmonary nodules. No pleural effusions or pneumothorax. Central and peripheral airways are patent. Mediastinum: Post median sternotomy and CABG. Heart size is normal, without pericardial effusion. No mediastinal or hilar adenopathy. Ascending aorta ectasia measures 3.9 cm or less, (4/70). No aortic dissection. Esophagus is normal in caliber, without hiatal hernia. Bones and chest wall: No suspicious bony lesions. Ribs and thoracic spine appear intact throughout. No axillary or supraclavicular adenopathy. No thyroid nodules which require sonographic follow up, per consensus guidelines. Abdomen: Visualized upper abdominal solid organs appear normal in the early arterial phase of enhancement. IMPRESSION: 1. No central pulmonary embolism. 2. No acute airspace opacity identified. Dependent atelectasis. No pleural effusion. 3. Post median sternotomy and CABG. Ascending aortic ectasia measuring approximately 3.9 cm. No aortic dissection. This report is concordant with the overnight preliminary interpretation. Dictated by: Nick Alexander M.D. on 07/18/2023 at 7:58 Approved by: Nick Alexander M.D. on 07/18/2023 at 8:07
[2023-07-18] MEDS: SODIUM CHLORIDE 0.9% 1,000 ML 150 ML IV (03:00)
[2023-07-18 03:24] LABS: Bacteria Urine None Seen; RBC Urine 0-1/HPF (0-5/HPF); Squamous Epithelial Cell Urine None Seen (0-5/HPF); WBC Urine None Seen (0-5/HPF)
[2023-07-18 03:25] LABS: Culture Indicated Urine Cult Not Indicated
[2023-07-18] MEDS: ACETAMINOPHEN 325 MG TABLET 975 MG PO (03:33)
[2023-07-18 04:40] LABS: Adenovirus Not Detected (Not Detect); B. parapertussis Not Detected (Not Detecte); Bordetella pertussis Not Detected (Not Detect); Chlamydophila pneumoniae Not Detected (Not Detect); Coronavirus 229E Not Detected (Not Detect); Coronavirus HKU1 Not Detected (Not Detect); Coronavirus NL 63 Not Detected (Not Detect); Coronavirus OC43 Not Detected (Not Detect); Human Metapneumovirus Not Detected (Not Detect); Human Rhinovirus/Enterovirus Not Detected (Not Detect); Influenza A Not Detected (Not Detect); Influenza B Not Detected (Not Detect); Mycoplasma pneumoniae Not Detected (Not Detect); Parainfluenza Virus 1 Not Detected (Not Detect); Parainfluenza Virus 2 Not Detected (Not Detect); Parainfluenza Virus 3 Not Detected (Not Detect); Parainfluenza Virus 4 Not Detected (Not Detect); Respiratory Syncytial Virus Not Detected (Not Detect); SARS- CoV-2 Not Detected (Not Detecte)
--- NOTE | 2023-07-18 06:05 | P.HP_ITS ---
History of Present Illness History of Present Illness Date Patient Seen: 07/18/23 Chief complaint: abd pain Narrative: 53 y/o presented to ED with abdominal bloating, pain, nausea, vomiting, after he had diarrhea upon arrival from [facility] where he spent several days. CT abdomen showing partial SBO. [facility] Medical History (Updated 07/18/23 @ 06:09 by Pawel Astorga MD) Diabetes HLD (hyperlipidemia) CAD (coronary artery disease) BPH NOS w/o ur obs/LUTS Sterilization consult Family history of prostate cancer in father Male circumcision High blood pressure History of heart disease Hydronephrosis, left Nephrolithiasis Ureterolithiasis Surgical History Hx of CABG Family History Father Cancer CAD in [place] artery Social History marital status: number of children: 2 household members: spouse Smoking Status: Never smoker Type(s) of exercise: other frequency: 3-4 times per week Meds Home Medications and Allergies Home Medications Medication Instructions Recorded Confirmed Type aspirin 81 mg tablet,delayed 81 mg PO DAILY 11/17/22 07/18/23 History release (Adult Aspirin Regimen) metoprolol succinate 50 mg 50 mg PO DAILY 11/17/22 07/18/23 History tablet,extended release 24 hr rosuvastatin 40 mg tablet 40 mg PO DAILY 11/17/22 07/18/23 History empagliflozin 10 mg tablet 10 mg PO DAILY 12/29/22 07/18/23 History Allergies Allergy/AdvReac Type Severity Reaction Status Date / Time No Known Drug Allergies Allergy Verified 12/29/22 07:52 Review of Systems Review of Systems Narrative: Unobtainable - patient was not seen Exam Vital Signs (past 8 hours): - 07/17/23 23:42 07/18/23 00:59 07/18/23 01:00 Temperature 99 F Pulse Rate 133 H 109 H 109 H Respiratory Rate 20 20 20 Blood Pressure 150/94 H Pulse Oximetry 96 99 99 Oxygen Delivery Method Room Air Room Air 07/18/23 01:30 07/18/23 02:00 07/18/23 02:00 Temperature Pulse Rate 103 H 112 H Respiratory Rate 21 18 Blood Pressure 131/85 Pulse Oximetry 97 97 Oxygen Delivery Method Room Air 07/18/23 02:30 07/18/23 02:30 07/18/23 03:00 Temperature Pulse Rate 111 H 115 H Respiratory Rate 25 H 24 Blood Pressure 125/82 Pulse Oximetry 94 97 Oxygen Delivery Method 07/18/23 03:00 07/18/23 03:24 07/18/23 03:24 Temperature 101.3 F H Pulse Rate 112 H Respiratory Rate 24 Blood Pressure 118/87 126/83 Pulse Oximetry 98 Oxygen Delivery Method Room Air 07/18/23 03:30 07/18/23 03:30 07/18/23 04:00 Temperature Pulse Rate 112 H 119 H Respiratory Rate 28 H 24 Blood Pressure 127/86 Pulse Oximetry 97 96 Oxygen Delivery Method 07/18/23 04:00 07/18/23 04:03 07/18/23 04:30 Temperature 99.9 F H Pulse Rate 122 H Respiratory Rate 22 Blood Pressure 129/88 Pulse Oximetry 93 Oxygen Delivery Method 07/18/23 04:30 07/18/23 05:00 07/18/23 05:00 Temperature 99.9 F H Pulse Rate 115 H Respiratory Rate 18 Blood Pressure 122/85 115/83 Pulse Oximetry 93 Oxygen Delivery Method Room Air Oxygen Delivery Method Room Air Narrative Exam Narrative: Patient was not seen - late admission, cart was not ready Objective Labs 07/17/23 23:53 07/17/23 23:53 Labs: Laboratory Results - last 24 hr 07/17/23 07/17/23 07/18/23 23:53 23:55 02:55 WBC 3.7 L RBC 4.99 Hgb 16.5 Hct 47.4 MCV 95.1 MCH 33.1 MCHC 34.8 RDW 13.5 Plt Count 111 L Neut % (Auto) 70.0 Lymph % (Auto) 15.9 L [place] % (Auto) 11.8 Eos % (Auto) 1.9 L Baso % (Auto) 0.4 Neut # (Auto) 2600 Lymph # (Auto) 600 L [place] # (Auto) 400 Eos # (Auto) 100 Baso # (Auto) 0 D-Dimer 1875 H Sodium 136 L Potassium 3.4 Chloride 102 Carbon Dioxide 22 BUN 21 H Creatinine 0.85 Estimated GFR > 60 BUN/Creatinine Ratio 24.7 H Glucose 123 H Calcium 9.3 Total Bilirubin 1.0 AST 41 ALT 37 Alkaline Phosphatase 65 Troponin I < 0.012 NT-Pro-B Natriuret Pep 210 H Total Protein 7.7 Albumin 4.2 Globulin 3.5 Albumin/Globulin Ratio 1.2 Lipase 97 Urine RBC 0-1/hpf Urine WBC None seen Ur Squamous Epith Cells None seen Urine Bacteria None seen Ur Culture Indicated? Cult not indicated Chlamy pneumoniae PCR Adenovirus (PCR) B.parapertussis DNA PCR Coronavirus OC43 (PCR) Coronavirus HKU1 (PCR) Coronavirus 229E (PCR) SARS-CoV-2 (PCR) Coronavirus NL63 (PCR) Human Metapneumovir PCR Influenza Type A (PCR) Influenza Type B (PCR) M. pneumoniae (PCR) Parainfluenza 1 (PCR) Parainfluenza 2 (PCR) Parainfluenza 3 (PCR) Parainfluenza 4 (PCR) RSV (PCR) Entero/Rhino (PCR) 07/18/23 03:47 WBC RBC Hgb Hct MCV MCH MCHC RDW Plt Count Neut % (Auto) Lymph % (Auto) [place] % (Auto) Eos % (Auto) Baso % (Auto) Neut # (Auto) Lymph # (Auto) [place] # (Auto) Eos # (Auto) Baso # (Auto) D-Dimer Sodium Potassium Chloride Carbon Dioxide BUN Creatinine Estimated GFR BUN/Creatinine Ratio Glucose Calcium Total Bilirubin AST ALT Alkaline Phosphatase Troponin I NT-Pro-B Natriuret Pep Total Protein Albumin Globulin Albumin/Globulin Ratio Lipase Urine RBC Urine WBC Ur Squamous Epith Cells Urine Bacteria Ur Culture Indicated? Chlamy pneumoniae PCR Not detected Adenovirus (PCR) Not detected B.parapertussis DNA PCR Not detected Coronavirus OC43 (PCR) Not detected Coronavirus HKU1 (PCR) Not detected Coronavirus 229E (PCR) Not detected SARS-CoV-2 (PCR) Not detected Coronavirus NL63 (PCR) Not detected Human Metapneumovir PCR Not detected Influenza Type A (PCR) Not detected Influenza Type B (PCR) Not detected M. pneumoniae (PCR) Not detected Parainfluenza 1 (PCR) Not detected Parainfluenza 2 (PCR) Not detected Parainfluenza 3 (PCR) Not detected Parainfluenza 4 (PCR) Not detected RSV (PCR) Not detected Entero/Rhino (PCR) Not detected Assessment & Plan Assessment and plan (1) SBO (small bowel obstruction): Status: Acute Plan: NPO, IVFs, NGT prn for sucction (2) High blood pressure: Status: Acute Plan: Metoprolol iv prn At home on Toprol XL 50 mg daily (3) CAD (coronary artery disease): Status: Acute Plan: At home on ASA, statin and BB Without angina (4) HLD (hyperlipidemia): Status: Acute Plan: Statin at home (5) Diabetes: Status: Acute Plan: At home on Jardiance SS insulin while NPO
[2023-07-18] MEDS: LACTATED RINGERS 1,000 ML 100 ML IV ×2 (06:49→16:49)
--- NOTE | 2023-07-18 07:36 | PC.NURSE ---
0600--rec'd pt fro ED; admission assessment and med rec completed; fingerstick-97; pt amb to bathroom, steady on feet, urinated and reported passing gas but no BM; pt reports abd cramping but refuses pain meds at this time; pt w/ active bowel sounds in all quads; abd soft but tender and distended; pt denies nausea at this time
--- NOTE | 2023-07-18 08:26 | PM.HP.1 ---
History of Present Illness History of Present Illness Date Patient Seen: 07/18/23 Chief complaint: abd pain Narrative: 53 y/o presented to ED with abdominal bloating, pain, nausea, vomiting, after he had diarrhea upon arrival from [facility] where he spent several days. CT abdomen showing partial SBO. [facility] Medical History (Updated 07/18/23 @ 16:30 by Chris Cárdenas DO) Diabetes HLD (hyperlipidemia) CAD (coronary artery disease) BPH NOS w/o ur obs/LUTS Sterilization consult Family history of prostate cancer in father Male circumcision High blood pressure History of heart disease Hydronephrosis, left Nephrolithiasis Ureterolithiasis Surgical History Hx of CABG Family History Father Cancer CAD in [place] artery Social History marital status: number of children: 2 household members: spouse Smoking Status: Never smoker Type(s) of exercise: other frequency: 3-4 times per week Meds Home Medications and Allergies Home Medications Medication Instructions Recorded Confirmed Type aspirin 81 mg tablet,delayed 81 mg PO DAILY 11/17/22 07/18/23 History release (Adult Aspirin Regimen) metoprolol succinate 50 mg 50 mg PO DAILY 11/17/22 07/18/23 History tablet,extended release 24 hr rosuvastatin 40 mg tablet 40 mg PO DAILY 11/17/22 07/18/23 History empagliflozin 10 mg tablet 10 mg PO DAILY 12/29/22 07/18/23 History Allergies Allergy/AdvReac Type Severity Reaction Status Date / Time No Known Drug Allergies Allergy Verified 12/29/22 07:52 Review of Systems Review of Systems Narrative: All other systems reviewed with the patient and are negative unless otherwise stated. Exam Vital Signs (past 8 hours): - 07/18/23 00:59 07/18/23 01:00 07/18/23 01:30 Temperature Pulse Rate 109 H 109 H 103 H Respiratory Rate 20 20 21 Blood Pressure Pulse Oximetry 99 99 97 Oxygen Delivery Method Room Air 07/18/23 02:00 07/18/23 02:00 07/18/23 02:30 Temperature Pulse Rate 112 H 111 H Respiratory Rate 18 25 H Blood Pressure 131/85 Pulse Oximetry 97 94 Oxygen Delivery Method Room Air 07/18/23 02:30 07/18/23 03:00 07/18/23 03:00 Temperature Pulse Rate 115 H Respiratory Rate 24 Blood Pressure 125/82 118/87 Pulse Oximetry 97 Oxygen Delivery Method 07/18/23 03:24 07/18/23 03:24 07/18/23 03:30 Temperature 101.3 F H Pulse Rate 112 H 112 H Respiratory Rate 24 28 H Blood Pressure 126/83 Pulse Oximetry 98 97 Oxygen Delivery Method Room Air 07/18/23 03:30 07/18/23 04:00 07/18/23 04:00 Temperature Pulse Rate 119 H Respiratory Rate 24 Blood Pressure 127/86 129/88 Pulse Oximetry 96 Oxygen Delivery Method 07/18/23 04:03 07/18/23 04:30 07/18/23 04:30 Temperature 99.9 F H Pulse Rate 122 H Respiratory Rate 22 Blood Pressure 122/85 Pulse Oximetry 93 Oxygen Delivery Method 07/18/23 05:00 07/18/23 05:00 07/18/23 05:30 Temperature 99.9 F H Pulse Rate 115 H Respiratory Rate 18 Blood Pressure 115/83 112/81 Pulse Oximetry 93 Oxygen Delivery Method Room Air 07/18/23 05:30 07/18/23 06:00 Temperature Pulse Rate 117 H Respiratory Rate 20 Blood Pressure Pulse Oximetry 94 Oxygen Delivery Method Room Air Room Air Oxygen Delivery Method Room Air Narrative Exam Narrative: GEN: no acute distress HEENT: moist mucous membranes, PERRL NECK: trachea midline, no JVD CV: regular rate and rhythm, no murmurs PULM: clear bilaterally ABD: soft, mildly tender, nondistended, no organomegaly EXT: warm and well perfused with no edema NEURO: awake, alert, oriented, no focal deficits Objective Labs 07/17/23 23:53 07/17/23 23:53 Labs: Laboratory Results - last 24 hr 07/17/23 07/17/23 07/18/23 23:53 23:55 02:55 WBC 3.7 L RBC 4.99 Hgb 16.5 Hct 47.4 MCV 95.1 MCH 33.1 MCHC 34.8 RDW 13.5 Plt Count 111 L Neut % (Auto) 70.0 Lymph % (Auto) 15.9 L [place] % (Auto) 11.8 Eos % (Auto) 1.9 L Baso % (Auto) 0.4 Neut # (Auto) 2600 Lymph # (Auto) 600 L [place] # (Auto) 400 Eos # (Auto) 100 Baso # (Auto) 0 D-Dimer 1875 H Sodium 136 L Potassium 3.4 Chloride 102 Carbon Dioxide 22 BUN 21 H Creatinine 0.85 Estimated GFR > 60 BUN/Creatinine Ratio 24.7 H Glucose 123 H Calcium 9.3 Total Bilirubin 1.0 AST 41 ALT 37 Alkaline Phosphatase 65 Troponin I < 0.012 NT-Pro-B Natriuret Pep 210 H Total Protein 7.7 Albumin 4.2 Globulin 3.5 Albumin/Globulin Ratio 1.2 Lipase 97 Urine RBC 0-1/hpf Urine WBC None seen Ur Squamous Epith Cells None seen Urine Bacteria None seen Ur Culture Indicated? Cult not indicated Chlamy pneumoniae PCR Adenovirus (PCR) B.parapertussis DNA PCR Coronavirus OC43 (PCR) Coronavirus HKU1 (PCR) Coronavirus 229E (PCR) SARS-CoV-2 (PCR) Coronavirus NL63 (PCR) Human Metapneumovir PCR Influenza Type A (PCR) Influenza Type B (PCR) M. pneumoniae (PCR) Parainfluenza 1 (PCR) Parainfluenza 2 (PCR) Parainfluenza 3 (PCR) Parainfluenza 4 (PCR) RSV (PCR) Entero/Rhino (PCR) 07/18/23 03:47 WBC RBC Hgb Hct MCV MCH MCHC RDW Plt Count Neut % (Auto) Lymph % (Auto) [place] % (Auto) Eos % (Auto) Baso % (Auto) Neut # (Auto) Lymph # (Auto) [place] # (Auto) Eos # (Auto) Baso # (Auto) D-Dimer Sodium Potassium Chloride Carbon Dioxide BUN Creatinine Estimated GFR BUN/Creatinine Ratio Glucose Calcium Total Bilirubin AST ALT Alkaline Phosphatase Troponin I NT-Pro-B Natriuret Pep Total Protein Albumin Globulin Albumin/Globulin Ratio Lipase Urine RBC Urine WBC Ur Squamous Epith Cells Urine Bacteria Ur Culture Indicated? Chlamy pneumoniae PCR Not detected Adenovirus (PCR) Not detected B.parapertussis DNA PCR Not detected Coronavirus OC43 (PCR) Not detected Coronavirus HKU1 (PCR) Not detected Coronavirus 229E (PCR) Not detected SARS-CoV-2 (PCR) Not detected Coronavirus NL63 (PCR) Not detected Human Metapneumovir PCR Not detected Influenza Type A (PCR) Not detected Influenza Type B (PCR) Not detected M. pneumoniae (PCR) Not detected Parainfluenza 1 (PCR) Not detected Parainfluenza 2 (PCR) Not detected Parainfluenza 3 (PCR) Not detected Parainfluenza 4 (PCR) Not detected RSV (PCR) Not detected Entero/Rhino (PCR) Not detected Assessment & Plan Assessment and plan (1) Shiga toxin-producing Escherichia coli infection: Status: Acute Plan: GI PCR positive for Shiga toxin, O157 negative. No HUS due to normal Cr. no abx needed, supportive care platelets low at 111 so will continue to monitor continue IVF (2) SBO (small bowel obstruction): Status: Acute Plan: underwent gastrografin and now improving gen surg said no surg needed now resolving as having BM's (3) High blood pressure: Status: Acute Plan: continue home Toprol XL 50 mg daily (4) CAD (coronary artery disease): Status: Acute Plan: continue home ASA, statin and BB (5) HLD (hyperlipidemia): Status: Acute Plan: Statin at home (6) Diabetes: Status: Acute Plan: At home on Jardiance SSI Plan Dispo: Home on 07/19 if platelets improving and tolerating diet.
--- NOTE | 2023-07-18 11:22 | CM.DANOTE ---
DCP: Case received, EMR reviewed and met with patient. Introduced self and role. Was able to obtain information from patient to complete DCP assessment. Patient is a 53 year old male who admitted early this morning to the care of the hospitalist team. PCP: Dr. Dewey. Payer: confirmed: [facility]. Patient came to the hospital via private vehicle secondary to having nausea, flu like symptoms, abdominal bloating. Notes indicate that patient had recently came back from [facility], has land in the area. Patient had CT of his abdomen, which noted partial SBO. Met with patient in his room. He was laying in bed, alert. Confirmed that he resides in [place], works as a nurse elevator operator service at [employer]. He indicated that he recently returned from [facility], he has property, land, there. Stated, no one else that I was with had gotten ill on the trip except for me. P: DCP to continue to follow. Patient should be able to go home when deemed medically stable. Berkley Devlin RN/Instruments Sales Representative Discharge Planning/Care Management CM Discharge Assessment Start: 07/18/23 11:20 Freq: Status: Active Protocol: Document 07/18/23 11:20 (Rec: 07/18/23 11:22 [id number]) Discharge Planning Assessment Assigned Gas Refrigerator Servicer Berkley Devlin RN/Instruments Sales Representative Advance Directives? No History Provided By Patient,Medical Record Prior Living Arrangements House Comment has stairs Household Members spouse Type of transporation used prior to Drives own vehicle admit Independent with ADL's Yes Is patient alert and oriented? Yes Caregiver for Another Yes Barriers to Discharge No Discharge Plan Home Transportation Arrangement Family Referrals Initiated None needed Whiteboard Updated in Patient Room with Yes name and ext. # of Gas Refrigerator Servicer Review Status In Process Next Review Type Continued Stay Review
[2023-07-18] MEDS: PANTOPRAZOLE 40 MG VIAL 20 MG IV (11:53)
[2023-07-18 14:18] LABS: Adenovirus F 40/41 Not Detected (Not Detect); Astrovirus Not Detected (Not Detect); Campylobacter Not Detected (Not Detect); Clostridium difficile toxin AB Not Detected (Not Detect); Cryptosporidium Not Detected (Not Detect); Cyclospora cayetanensis Not Detected (Not Detect); Entamoeba histolytica Not Detected (Not Detect); Enteroaggregative E.coli Not Detected (Not Detect); Enterotoxigenic E.coli It/st Not Detected (Not Detect); Giardia lamblia Not Detected (Not Detect); Norovirus GI/GII Not Detected (Not Detect); Plesiomonsa shigelloides Not Detected (Not Detect); Rotavirus A Not Detected (Not Detect); Salmonella Not Detected (Not Detect); Sapovirus Not Detected (Not Detect); Shigella/Enteroinvasive E.coli Not Detected (Not Detect); Vibrio Not Detected (Not Detect); Vibrio cholerae Not Detected (Not Detect); Yersinia enterocolitica Not Detected (Not Detect)
[2023-07-18 14:33] LABS: Shiga-like toxin-prod E.coli Detected (Not Detect)
[2023-07-18 16:31] LABS: Hemoglobin A1C% w Est Avg Glu 5.6 % (4.0-6.0)
--- NOTE | 2023-07-18 23:35 | PC.NURSE ---
Patient is alert and oriented. Breath sounds CTA with RA sat of 96%. HRR. Denied nausea at time of assessment but reports some intermittent nausea when abdominal cramping increases. Is continuing to have frequent liquid stools and reports when he falls asleep he is sometimes being incontinent of stool. BT present and is passing flatus; tender with mild distention. Denied dysuria with urination. Is independent with mobility and up to bathroom frequently so declined use of SCD's. Is on enteric precautions related to being positive for shiga toxin. Fall risk score is moderate but because he is alert, steady and denied dizziness or lightheadedness, alarm not in use at this time.
[2023-07-19] MEDS: LACTATED RINGERS 1,000 ML 100 ML IV (02:54)
[2023-07-19] MEDS: OXYCODONE IR 5 MG TABLET PO ×2 (03:00→18:42)
[2023-07-19 04:44] VITALS: BP 121/77; PULSE 89; RESP 19; TEMP 36.3; O2SAT 96
[2023-07-19 05:31] LABS: BUN Creatinine Ratio 17.3 (6-22); Blood Urea Nitrogen 14 mg/dL (9-20); Calcium 8.5 mg/dL (8.4-10.2); Carbon Dioxide 22 mmol/L (22-32); Chloride 107 mmol/L (98-107); Estimated Glomerular Filt Rate > 60 mL/min (>60); Glucose 105 mg/dL (70-100); HEMOLYSIS < 15 (0-50); Potassium 3.2 mmol/L (3.4-5.1); Sodium 134 mmol/L (137-145)
[2023-07-19 05:35] LABS: Hematocrit 40.5 % (41-53); Mean Corpuscular HGB Conc 34.5 % (30-36); Mean Corpuscular Hemoglobin 32.7 PG (26-34); Mean Corpuscular Volume 94.8 fL (80-100); Platelet Count 94 X10^3/uL (150-400); Red Blood Cell Count 4.27 X10^6/uL (4.5-5.9); Red Cell Distribution Width 13.4 % (11.6-14.8); White Blood Cell Count 3.1 X10^3/uL (4.5-11.0)
[2023-07-19 05:59] LABS: Add Manual Diff / Slide Review YES
[2023-07-19 06:16] LABS: Neutrophils Absolute Manual 1705 /uL (3000-5900); Total Cells Counted 100
[2023-07-19 06:17] LABS: Anisocytosis 1+; Burr Cells 1+; Macrocytosis 1+; Ovalocytes 1+; Polychromasia 1+
[2023-07-19] MEDS: POTASSIUM CHLORIDE 20 MEQ TAB 40 MEQ PO ×2 (08:40→16:58)
[2023-07-19] MEDS: ASPIRIN EC 81 MG TABLET PO (08:40)
[2023-07-19] MEDS: ATORVASTATIN 20 MG TABLET 80 MG PO (08:40)
[2023-07-19 08:42] VITALS: BP 118/69; PULSE 87
[2023-07-19] MEDS: METOPROLOL ER 50 MG TABLET PO (08:42)
[2023-07-19] MEDS: PANTOPRAZOLE 40 MG VIAL 20 MG IV (08:44)
[2023-07-19 09:15] VITALS: BP 120/81; PULSE 93
[2023-07-19 12:00] VITALS: BP 118/69; PULSE 87; RESP 16; TEMP 36.8; O2SAT 97
--- NOTE | 2023-07-19 14:17 | CM.DPC ---
DCP Continued: MARKETING ANALYST reviewed EMR. Per previous RN/discharge assessment, likely home when stable no needs. Per provider in rounds, patient likely to d/c tomorrow. Plan: d/c home when medically stable, likely tomorrow. No CM needs identified at this time. CM team will continue to follow as needed. JUNO Simon
--- NOTE | 2023-07-19 19:12 | P.PN_ITS ---
Subjective Subjective Date Patient Seen: 07/19/23 Time Patient Seen: 08:00 Interval history: He is feeling improved, but his abdominal symptoms have not completely resolved. Exam Vital Signs (past 8 hours): - 07/19/23 12:00 Temperature 98.2 F Pulse Rate 87 Respiratory Rate 16 Blood Pressure 118/69 Pulse Oximetry 97 Oxygen Flow Rate 0 Oxygen Delivery Method Room Air Oxygen Flow Rate 0 Narrative Exam Narrative: GEN: no acute distress CV: regular rate and rhythm, no murmurs PULM: clear bilaterally ABD: soft, mildly tender, nondistended, no organomegaly EXT: warm and well perfused with no edema NEURO: awake, alert, oriented, no focal deficits Objective Labs 07/19/23 04:16 07/19/23 04:16 Labs: Laboratory Results - last 24 hr 07/19/23 04:16 WBC 3.1 L RBC 4.27 L Hgb 14.0 Hct 40.5 L MCV 94.8 MCH 32.7 MCHC 34.5 RDW 13.4 Plt Count 94 L Neut % (Auto) Not Reportable Lymph % (Auto) Not Reportable [place] % (Auto) Not Reportable Eos % (Auto) Not Reportable Baso % (Auto) Not Reportable Lymph # (Auto) Not Reportable [place] # (Auto) Not Reportable Baso # (Auto) Not Reportable Total Counted 100 Seg Neutrophils % 48.0 Band Neutrophils % 7.0 Lymphocytes % (Manual) 23.0 L Monocytes % (Manual) 21.0 H Eosinophils % (Manual) 1.0 L Neutrophils # (Manual) 1705 L RBC Morphology See below Polychromasia 1+ H Anisocytosis 1+ H Macrocytosis 1+ H Ovalocytes 1+ H Eddi Cells 1+ H Sodium 134 L Potassium 3.2 L Chloride 107 Carbon Dioxide 22 BUN 14 Creatinine 0.81 Estimated GFR > 60 BUN/Creatinine Ratio 17.3 Glucose 105 H Calcium 8.5 PFSH Medical History (Updated 07/18/23 @ 16:30 by Chris Cárdenas DO) Diabetes HLD (hyperlipidemia) CAD (coronary artery disease) BPH NOS w/o ur obs/LUTS Sterilization consult Family history of prostate cancer in father Male circumcision High blood pressure History of heart disease Hydronephrosis, left Nephrolithiasis Ureterolithiasis Surgical History Hx of CABG Family History Father Cancer CAD in [place] artery Social History marital status: number of children: 2 household members: spouse Smoking Status: Never smoker Type(s) of exercise: other frequency: 3-4 times per week Assessment & Plan Assessment and plan (1) Shiga toxin-producing Escherichia coli infection: Status: Acute Plan: GI PCR positive for Shiga toxin, O157 negative. No HUS due to normal Cr. antibiotics not indicated supportive care continue to monitor platelets until improving stop IVF (2) SBO (small bowel obstruction): Status: Acute Plan: resolved (3) High blood pressure: Status: Acute Plan: continue home Toprol XL 50 mg daily (4) CAD (coronary artery disease): Status: Acute Plan: continue home ASA, statin and BB (5) HLD (hyperlipidemia): Status: Acute Plan: Statin at home (6) Diabetes: Status: Acute Plan: At home on Jardiance SSI
[2023-07-19 20:00] VITALS: BP 110/88; PULSE 79; RESP 16; TEMP 36.7; O2SAT 96
[2023-07-20 04:00] VITALS: BP 118/82; PULSE 74; RESP 16; TEMP 36.7; O2SAT 97
[2023-07-20 04:55] LABS: Add Manual Diff / Slide Review NO; Basophils Absolute Auto 0 /uL (0-100); Basophils Percent Auto 0.6 % (0-2); Eosinophils Absolute Auto 100 /uL (0-450); Eosinophils Percent Auto 2.2 % (2-4); Hematocrit 40.7 % (41-53); Hemoglobin 14.3 g/dL (13.5-17.5); Lymphocytes Absolute Auto 1400 /uL (1100-4500); Lymphocytes Percent Auto 31.5 % (25-40); Mean Corpuscular HGB Conc 35.1 % (30-36); Mean Corpuscular Volume 93.9 fL (80-100); Monocytes Absolute Auto 800 /uL (0-900); Monocytes Percent Auto 19.2 % (3-14); Neutrophils Absolute Auto 2000 /uL (1500-7000); Neutrophils Percent Auto 46.5 % (50-75); Platelet Count 105 X10^3/uL (150-400); Red Blood Cell Count 4.33 X10^6/uL (4.5-5.9); Red Cell Distribution Width 13.1 % (11.6-14.8); White Blood Cell Count 4.3 X10^3/uL (4.5-11.0)
[2023-07-20 04:56] LABS: BUN Creatinine Ratio 13.2 (6-22); Blood Urea Nitrogen 10 mg/dL (9-20); Calcium 8.8 mg/dL (8.4-10.2); Carbon Dioxide 21 mmol/L (22-32); Chloride 107 mmol/L (98-107); Estimated Glomerular Filt Rate > 60 mL/min (>60); Glucose 94 mg/dL (70-100); HEMOLYSIS < 15 (0-50); Potassium 3.7 mmol/L (3.4-5.1); Sodium 135 mmol/L (137-145)
[2023-07-20] MEDS: PANTOPRAZOLE DR 20 MG TABLET PO (06:04)
[2023-07-20] MEDS: METOPROLOL ER 50 MG TABLET PO (08:28)
[2023-07-20] MEDS: ASPIRIN EC 81 MG TABLET PO (08:28)
--- NOTE | 2023-07-20 10:13 | CM.DPC ---
DCP Continued COMPUTATIONAL CHEMIST reviewed EMR. dc order in. COMPUTATIONAL CHEMIST entered room and introduced self and role. Patient sitting up in bed. Reports no needs at this time. Plan home today. No CM needs identified at this time. CM team will continue to follow as needed. Beatrice Fournier, JUNO
--- NOTE | 2023-07-20 11:23 | PC.NURSE ---
Patient is A&Ox4, VSS, afebrile. He is independent in the room. He denies n/v or diarrhea today. MD at bedside reviewing lab results with patient and clears him medically for discharge home. He verbalizes understanding of discharge instructions, home meds, and follow up recommendations. He is escorted by RN to private vehicle with his spouse with all of his belongings at approximately 10:05 a.m.
--- NOTE | 2023-07-21 19:28 | P.DS_ITS ---
History of Present Illness History of Present Illness Date Patient Seen: 07/18/23 Chief complaint: abd pain Narrative: Per admitting physician: 53 y/o presented to ED with abdominal bloating, pain, nausea, vomiting, after he had diarrhea upon arrival from [facility] where he spent several days. CT abdomen showing partial SBO. Discharge Providers Provider Date of admission: 07/18/23 05:22 Discharge Date: 07/20/23 Primary care physician: Osmany Dewey PA-C Consults: 07/18/23 08:21 Consult to General Surgery Routine Comment: Consulting Provider: Martin Swain Reason for consultation: SBO Discharge provider: Jeremiah Aviles MD Summary Hospital Course Discharge Diagnosis: 1. Gastroenteritis, shiga toxin causing thrombocytopenia 2. Hypertension 3. Partial SBO 4. CAD 5. Type 2 DM Hospital Course: Mr. Benz presented with abdominal symptoms after recent trip to [facility]. He initially had concern for partial SBO, but his symptoms improved and surgery said there is no reason for surgery. He had shiga toxin producing infection. This casued thrombocytopenia. But he did not develop HUS. He was treated with supportive care, no antibiotics. His abdominal symptoms improved and his platelet count improve and he was able to be discharged home. Exam Vital Signs (past 8 hours): Oxygen Delivery Method Room Air Oxygen Flow Rate 0 Narrative Exam Narrative: GEN: no acute distress CV: regular rate and rhythm, no murmurs PULM: clear bilaterally ABD: soft, non tender, nondistended, no organomegaly EXT: warm and well perfused with no edema NEURO: awake, alert, oriented, no focal deficits Objective Labs 07/20/23 04:35 07/20/23 04:35 [facility] Medical History (Updated 07/18/23 @ 16:30 by Chris Cárdenas DO) Diabetes HLD (hyperlipidemia) CAD (coronary artery disease) BPH NOS w/o ur obs/LUTS Sterilization consult Family history of prostate cancer in father Male circumcision High blood pressure History of heart disease Hydronephrosis, left Nephrolithiasis Ureterolithiasis Surgical History Hx of CABG Family History Father Cancer CAD in [place] artery Social History marital status: number of children: 2 household members: spouse Smoking Status: Never smoker Type(s) of exercise: other frequency: 3-4 times per week Discharge Plan Discharge Plan Patient Disposition: Home Provider Discharge Comment: Mr. Benz came in with an abdominal infection. He improved and was able to be discharged home. Discharge orders & Medications Prescriptions: Continued metoprolol succinate 50 mg tablet extended release 24 hr 50 mg PO DAILY rosuvastatin 40 mg tablet 40 mg PO DAILY aspirin [Adult Aspirin Regimen] 81 mg tablet,delayed release (DR/EC) 81 mg PO DAILY empagliflozin 10 mg tablet 10 mg PO DAILY Follow up/Referrals: Osmany Dewey PA-C [Primary Care Provider] - 2 Weeks (please schedule a follow up appointment with your primary care doctor for with in 2 weeks of discharge ) Visit Report/Discharge Packet Stand Alone Forms: Patient Portal/API, Stroke Signs & Symptoms Discharge Data Primary Care Provider: Osmany Dewey
== END 2023-07-20 10:05 | disposition home or self-care (01) | DRG 390 ==
LOC: ED 07-18 05:21 → AC 07-18 08:36
PROVIDERS: Student in an Organized Health Care Education/Training Program; Admitting Provider Internal Medicine; Emergency Provider Emergency Medicine; PCP Physician Assistant; Referring Provider Emergency Medicine; Visit Provider Internal Medicine
DX: K56.600 Partial intestinal obstruction, unspecified as to cause (principal); I10 Essential (primary) hypertension; I25.10 Atherosclerotic heart disease of native coronary artery without angina pectoris; E78.5 Hyperlipidemia, unspecified; E11.9 Type 2 diabetes mellitus without complications; B96.23 Unspecified Shiga toxin-producing Escherichia coli [E. coli] [STEC] as the cause of diseases classified elsewhere; K52.9 Noninfective gastroenteritis and colitis, unspecified; D69.59 Other secondary thrombocytopenia; Z79.84 Long term (current) use of oral hypoglycemic drugs
CPT/HCPCS: 36415; 71275; 74018; 74177; 80048; 80053; 81003; 81015; 82962; 83036; 83690; 83880; 84484; 85007; 85025; 85379; 87177; 87507; 87633; 93005; 93010; 96374; 96375; 99284; C9113; J1170; J2405; Q9967

== ENCOUNTER → 2024-05-24 09:13 | Outpatient (CLI) | payer OTHER, SELFPAY ==
[2023-07-18 06:00] VITALS: BMI 32.5
--- NOTE | 2024-05-24 09:14 | DI.ECHO.S_ITS ---
[facility] +---------+ [facility] : : [address] : : [place] : : [id number] : : Phone: [phone] Echocardiogram Report + + :Name: SHEREE WHITING Study Date: 05/24/2024 Height: 68 in : :Hospital ReadingLocation: Weight: 215 lb : : Gender: Male BSA: 2.1 m2 : :: 1970 Age: 53 yrs BP: 115/84 mmHg: :Reason For Study: CAD : :Ordering Physician: LIZ, : :PERRY Performed By: Marilyn Kimble : :Referring: PERRY HILL : + + Interpretation Summary The ejection fraction is estimated to be 50-55%. Diastolic parameters suggest probable normal left ventricular diastolic function and normal filling pressures. The right ventricle is normal in size and function. No significant valvular abnormalities. Pulmonary artery pressures cannot be estimated because of the lack of a measurable TR jet velocity but the IVC suggests a CVP of around 3 mmHg. Procedure: A two-dimensional transthoracic echocardiogram with color flow and Doppler was performed. The study quality was technically adequate. Comparison is made with the echocardiogram of in Care Everywhere 09/20/2021. The patient was in sinus rhythm with heart rates between 71-105 bpm during the exam. Left Ventricle: The left ventricle is normal in size and wall thickness. The ejection fraction is estimated to be 50-55%. Diastolic parameters suggest probable normal left ventricular diastolic function and normal filling pressures. Right Ventricle: The right ventricle is normal in size and function. Atria: Both atria are normal in size. There is no Doppler evidence for an interatrial shunt. Mitral Valve: The mitral valve is normal in structure and function. There is trace mitral regurgitation. Aortic Valve: The aortic valve is trileaflet. The aortic valve opens well. There is no aortic valve stenosis. No aortic regurgitation is present. Tricuspid Valve: The tricuspid valve leaflets are thin and pliable. There is a trace or physiologic amount of tricuspid regurgitation. Pulmonary artery pressures cannot be estimated because of the lack of a measurable TR jet velocity but the IVC suggests a CVP of around 3 mmHg. Pulmonic Valve: The pulmonic valve leaflets are thin and pliable; valve motion is normal. There is a trace or physiologic amount of pulmonic regurgitation. Great Vessels: The aortic root is normal size. The ascending aorta is normal in size. The aortic arch is normal in size. The pulmonary artery is not well visualized, but is probably normal size. The IVC is of normal diameter and collapses greater than 50% with a sniff. This suggests a low right atrial pressure of 3 mm Hg. Pericardium/ Pleura There is no pericardial effusion. There is no pleural effusion. MMode/2D Measurements & Calculations LVIDd: 4.7 cm LVOT diam: 2.3 cm LVIDs: 3.2 cm Ao root diam: 3.4 cm FS: 32.5 % asc Aorta Diam: 3.7 cm EPSS: 0.66 cm Ao Arch Diam (Prox Trans): 2.3 cm IVSd: 0.99 cm LVPWd: 0.72 cm LV butt. diameter/BSA (cm/m^2): 2.2 LV sys. diameter/BSA (cm/m^2): 1.5 LA A2 area: 17.2 cm2 RA long axis: 4.5 cm LA A4 area: 18.5 cm2 RA area: 14.1 cm2 LA length (vol): 5.1 cm RA vol: 38.0 ml LA vol: 52.7 ml RA : 18.0 ml/m2 LA vol index: 25.0 ml/m2 IVC diam: 0.94 cm TAPSE: 1.3 cm LVAd ap4: 29.2 cm2 LVAs ap4: 16.8 cm2 LVLs ap4: 6.5 cm LVAd ap2: 32.3 cm2 LVLd ap2: 8.4 cm LVAs ap2: 23.4 cm2 LVLs ap2: 7.5 cm Doppler Measurements & Calculations Ao V2 max: 114.0 cm/sec LVOT Max Mikel: 78.3 cm/sec Ao V2 mean: 77.9 cm/sec LV V1 max P.5 mmHg Ao max P.2 mmHg LV V1 VTI: 16.0 cm Ao mean P.8 mmHg JERRY(I,D): 3.2 cm2 Ao V2 VTI: 21.6 cm JERRY(V,D): 2.9 cm2 sev ratio: 0.74 JERRY indexed to BSA (cm^2/m^2): 1.5 MV E max mikel: 63.4 cm/sec PA V2 max: 68.0 cm/sec MV A max mikel: 50.5 cm/sec PA V2 mean: 48.4 cm/sec MV E/A: 1.3 PA mean P.0 mmHg Med Peak E' Mikel: 7.3 cm/sec PA pr(Accel): 15.6 mmHg E/E' med: 8.7 Lat Peak E' Mikel: 14.1 cm/sec E/E' lat: 4.5 E/e' average: 6.6 MV dec time: 0.16 sec SV(LVOT): 68.2 ml Reading Physician:04:46 PM
== END ==
PROVIDERS: PCP Physician Assistant; Referring Provider Chiropractor; Visit Provider Chiropractor
DX: I25.10 Atherosclerotic heart disease of native coronary artery without angina pectoris (principal)
CPT/HCPCS: 93306